=== PATIENT | male | born 2000 | race Caucasian/White ===

== ENCOUNTER 2020-09-11 13:03 | Outpatient (REF) | payer BC, MEDICAID, SELFPAY ==
--- NOTE | 2020-09-11 14:54 | MHC.AU.AHA ---
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 He arrives today to determine if there has been a change in hearing. His mother reports that he has not worn his hearing aids in about one year, as he has been doing remote schooling due to the COVID-19 pandemic. He will likely be returning to school in September, and his mother would like to make sure his hearing aids are working well before he returns. Previous Hearing Test Results: At this clinic on 12/20/2018- Right: Overall borderline-normal/mild hearing loss. Left: Moderately-severe rising to mild and sloping to moderately-severe mixed hearing loss. Medical History: Medical History: Down Syndrome Hearing Instrument History- Right Ear: Toy Electric Train Repairer: Oticon Model: Sensei Pro 13 Serial Number: [id number] Battery Size: 13 Repair Warranty: 11/25/2021 Loss and Damage Warranty: Used for right ear on 01/07/2019 Dispensed By: [facility] Date of Fittin11/14/2016 Hearing Instrument History- Left Ear: Toy Electric Train Repairer: Oticon Model: Sensei Pro 13 Serial Number: [id number] Battery Size: 13 Warranty: 11/23/2021 Loss and Damage Warranty: 11/23/2021 Dispensed By: [facility] Date of Fittin11/14/2016 Otoscopy: Right Ear: Clear canal Left Ear: Clear canal Tympanometry: Tympanometry performed due to: History of middle ear dysfunction Right Ear: Normal Middle Ear System (Type A) Left Ear: Non-compliant Middle Ear System (Type B) Hearing Evaluation: Transducer(s) Used: Insert Earphones Method: Conventional Audiometry Stimuli Used: Pure Tones Right Ear: Description of Hearing: Borderline-normal sloping to moderate mixed hearing loss Left Ear: Description of Hearing: Moderately-severe rising to mild and sloping to moderately-severe mixed hearing loss Speech Recognition Threshold (SRT): Method Used: Monitored Live Voice Stimuli Used: Pointing to Objects or Body Parts Right Ear: 20 dBHL Left Ear: 35 dBHL Comparison: Compared to the most recent evaluation: Hearing is stable. Recommendations: Audiological re-evaluation in one year. Hearing aid maintenance was performed today. Tubing was replaced. Molds are still fitting well. No programming changes made today. Hearing aids are amplifying clearly. Hearing aid maintenance in 6 months, or sooner if needed. Diagnosis: Primary Diagnosis: H90.6 Mixed Hearing Loss, Bilateral Services Performed: Pure Tone- Air & Bone (CPT 84541), Speech Audiometry Threshold (SRT/SAT) (CPT 57275), Tympanometry (CPT 65016) Signature: Provider: Lacey Bowman, CCC-A
== END 2020-09-11 13:04 | disposition home or self-care (01) ==
LOC: HO.SH 13:03
PROVIDERS: Visit Provider Pediatrics Adolescent Medicine
DX: H90.6 Mixed conductive and sensorineural hearing loss, bilateral (principal)
CPT/HCPCS: 92553; 92555; 92567

== ENCOUNTER 2021-09-13 15:21 | Outpatient (REF) | payer BC, MEDICAID, SELFPAY ==
--- NOTE | 2021-09-13 16:34 | MHC.AU.AHA ---
Adult Audiological Evaluation Date of Visit: 09/13/21 Community Program Assistant Used: Reason for Appointment: Audiological re-evaluation to determine if there has been a change in Camilo's hearing sensitivity. He has a known asymmetrical hearing loss, left ear worse than right, and uses hearing aids binaurally. His mother notes that he primarily wears the hearing aids at school, but is resistant to wearing them at home. She notes that he says the hearing aids are uncomfortable. Camilo's mother denies any changes to his medical history. Previous Hearing Test Results[place] [facility] [place]- Normal hearing in the right ear through 2000 Hz sloping to a mild to moderate sensorineural hearing loss 6385-2562 Hz. Moderately-severe rising to moderate mixed hearing loss 250-5000 Hz, rising to mild sensorineural hearing loss at 2000 and sloping to a moderate to moderately-severe sensorineural hearing loss 6205-2926 Hz. Ear History: Ear Infections in Childhood: Both ears Previous Ear Surgery: PE tubes, mother notes that one PE tube fell into left middle-ear space and had to be surgically removed. Medical History: Medical History: Down Syndrome Hearing Instrument History- Right Ear: Director Of It Operations: Oticon Model: Sensei Pro 13 Serial Number: [id number] Battery Size: 13 Repair Warranty: 11/25/2021 Loss and Damage Warranty: Used - 01/07/2019 Dispensed By: [facility] Date of Fittin11/14/2016 Hearing Instrument History- Left Ear: Director Of It Operations: Oticon Model: Sensei Pro 13 Serial Number: [id number] Battery Size: 13 Warranty: 11/23/2021 Loss and Damage Warranty: 11/23/2021 Dispensed By: [facility] Date of Fittin11/14/2016 Otoscopy: Right Ear: Unremarkable Left Ear: Unremarkable Tympanometry: Tympanometry performed due to: History of middle ear dysfunction Right Ear: Normal Middle Ear System (Type A) Left Ear: Non-compliant Middle Ear System (Type B) Hearing Evaluation: Transducer(s) Used: Insert Earphones, Bone Conduction Method: Conventional Audiometry Stimuli Used: Pure Tones Right Ear: Description of Hearing: Normal hearing from 250-2000 Hz, sloping to a mild to moderate sensorineural hearing loss from 8489-5121 Hz. Left Ear: Description of Hearing: Moderately-severe rising to moderate conductive hearing loss from 250-1000 Hz, rising to normal hearing at 2000 Hz, and then sloping to a mild to moderately-severe sensorineural hearing loss from 8463-3958 Hz. Speech Recognition Threshold (SRT): Method Used: Monitored Live Voice Stimuli Used: Spondee Words Right Ear: 15 dBHL Left Ear: 30 dBHL Word Discrimination: Method: Not performed at today's visit. Word Lists Used: Not performed at today's visit Comparison: Compared to the most recent evaluation: Hearing is stable. Recommendations: Audiological re-evaluation in one year. Trial with amplification is recommended. Medical clearance from a physician is required before fitting. Camilo's hearing aids will be [age] years old in October 2021. He is due for updated amplification and would benefit from updated technology. Discussed options with Camilo and his mother. They are interested in trying a smaller MARTA style hearing aid that may be more comfortable for Camilo and encourage more consistent hearing aid use. Camilo's health insurance plans will be contacted to determine his eligibility and coverage for new hearing aids. Once new hearing aids are approved by insurance and medical clearance is received, hearing aids will be ordered. Diagnosis: Primary Diagnosis: H90.3 Bilateral Sensorineural Hearing Loss Services Performed: Pure Tone- Air & Bone (CPT 24732) Speech Audiometry Threshold (SRT/SAT) (CPT 62907) Tympanometry (CPT 02038) Signature: Provider: Lacey Poole, [facility]
--- NOTE | 2021-09-13 16:40 | MHC.AU.HAS ---
Hearing Aid Evaluation Date of Visit: 09/22/21 Historical Information: Description of Hearing: Right ear- Normal hearing through 2000 Hz, sloping to a mild to moderate sensorineural hearing loss 6784-0251 Hz. Left ear- Moderately severe rising to moderate conductive hearing loss 250-1000 Hz, rising to normal hearing at 2000 Hz, and sloping to a mild to moderately-severe sensorineural hearing loss 2168-4445 Hz. Current personal amplification information, if applicable: 2016 Oticon Sensei Pro 13 BTEs Summary: Camilo's hearing aids will be [age] years old in October 2021. He is due for updated amplification and would benefit from updated technology. Camilo currently only wears his hearing aids at school, as he notes that they are uncomfortable. Discussed the option of trying a smaller MARTA style hearing aid couple with domes for improved comfort, as the current BTEs he has are much larger overall. He is interested in connectivity to his Android phone and his iPad. Hearing Aid Prescription: Based on the individual?s shared listening needs, communication environments, dexterity, desire for connectivity, and personal preferences, the following prescription for amplification has been made: Right ear: Registration Officer: Phonak Model: Audeo P70-13T Battery Size: 13 Color: P4- [place] Validation Leader: Size 0 M Type of Dome: Open Left ear: Registration Officer: Phonak Model: Audeo P70-13T Battery Size: 13 Color: P4- [place] Validation Leader: Size 0 M Type of Dome: Vented Plan of Care: Prior authorization to be requested. Medical Clearance to be requested from PCP/ENT. Hearing Instrument Fitting to be scheduled when materials arrive. Hearing aids will be ordered if/when approved. Primary Diagnosis: H90.3 Bilateral Sensorineural Hearing Loss Signature: Provider: Lacey Poole, [facility]
--- NOTE | 2021-09-13 16:43 | MHC.AU.AHA ---
Adult Audiological Evaluation Date of Visit: 09/22/21 Reason for Appointment: Audiological re-evaluation to determine if there has been a change in Camilo's hearing sensitivity. He has a known asymmetrical hearing loss, left ear worse than right, and uses hearing aids binaurally. His mother notes that he primarily wears the hearing aids at school, but is resistant to wearing them at home. She notes that he says the hearing aids are uncomfortable. Camilo's mother denies any changes to his medical history. [place] [facility] [place] Normal hearing in the right ear through 2000 Hz sloping to a mild to moderate sensorineural hearing loss 2968-9453 Hz. Moderately-severe rising to moderate mixed hearing loss 250-5000 Hz, rising to mild sensorineural hearing loss at 2000 and sloping to a moderate to moderately-severe sensorineural hearing loss 9277-0588 Hz. Ear History: Previous Ear Surgery: PE tubes, mother notes that the PE tube fell into the middle-ear space in the left ear and had to be surgically removed. Medical History: Medical History: Down Syndrome Hearing Instrument History- Right Ear: Floor Winder: [employer] Model: SpectraScienceeo P70-13T Serial Number: [id number] Battery Size: 13 Repair Warranty: 11/25/2021 Loss and Damage Warranty: Used - 01/07/2019 Dispensed By: [facility] Date of Fittin11/14/2016 Hearing Instrument History- Left Ear: Floor Winder: Phonak Model: SpectraScienceeo P70-13T Serial Number: [id number] Battery Size: 13 Warranty: 11/23/2021 Loss and Damage Warranty: 11/23/2021 Dispensed By: [facility] Date of Fittin11/14/2016 Otoscopy: Right Ear: Non-occluding cerumen Left Ear: Non-occluding cerumen Tympanometry: Tympanometry performed due to: History of middle ear dysfunction Right Ear: Normal Middle Ear System (Type A) Left Ear: Non-compliant Middle Ear System (Type B) Hearing Evaluation: Transducer(s) Used: Insert Earphones, Bone Conduction Method: Conventional Audiometry Stimuli Used: Pure Tones Right Ear: Description of Hearing: Normal hearing from 250-2000 Hz, sloping to a mild to moderate sensorineural hearing loss from 3405-1540 Hz. Left Ear: Description of Hearing: Moderately-severe rising to moderate conductive hearing loss from 250-1000 Hz, rising to normal hearing at 2000 Hz, and then sloping to a mild to moderately-severe sensorineural hearing loss from 2263-0600 Hz. Speech Recognition Threshold (SRT): Method Used: Monitored Live Voice Stimuli Used: Spondee Words Right Ear: 15 dBHL Left Ear: 30 dBHL Comparison: Compared to the most recent evaluation: Hearing is stable. Recommendations: Audiological re-evaluation in one year. Trial with amplification is recommended. Medical clearance from a physician is required before fitting. Camilo's hearing aids will be [age] years old in October 2021. He is due for updated amplification and would benefit from updated technology. Discussed options with Camilo and his mother. They are interested in trying a smaller MARTA style hearing aid that may be more comfortable for Camilo and encourage more consistent hearing aid use. Camilo's health insurance plans will be contacted to determine his eligibility and coverage for new hearing aids. Once new hearing aids are approved by insurance and medical clearance is received, hearing aids will be ordered. Diagnosis: Primary Diagnosis: H90.3 Bilateral Sensorineural Hearing Loss Services Performed: Pure Tone- Air & Bone (CPT 29683), Speech Audiometry Threshold (SRT/SAT) (CPT 98623), Tympanometry (CPT 36488) Signature: Provider: Lacey Poole, CCC-A
--- NOTE | 2021-09-22 14:41 | MHC.AU.MED ---
Medical Clearance for Hearing Instrumentation Date: 09/22/21 Patient Name: Camilo Oro III Date of : 2000 Referring Provider: Manish Jasso MD We have seen your patient on 09/13/21 and have determined that they are a candidate for amplification (See accompanying report). Specifically, they would benefit from: Hearing aid use in both ears There is a statute that addresses Medical Evaluation Requirements prior to fitting a patient with a hearing aid. According to [place] statute [facility] CMR:6.03(1), (a) General. Except as provided in 265 CMR 6.03(1)(b), a career technical supervisor shall not sell a hearing aid unless the prospective user has presented to the career technical supervisor a written statement signed by a licensed physician that states that the patient's hearing loss has been medically evaluated and the patient may be considered a candidate for a hearing aid. The medical evaluation must have taken place within the preceding six months. Please note: Due to the [place] Statute referenced above, we cannot accept a signature other than that of a licensed physician. CARGO ROUTER and PA signatures cannot be accepted. I am in agreement with the above recommendation. There is no medical contraindication for hearing instrumentation. Physician Signature Date Physician Name (Printed)
--- NOTE | 2021-09-22 14:42 | MHC.AU.MED ---
Medical Clearance for Hearing Instrumentation Date: 09/22/21 Patient Name: Camilo Oro III Date of : 2000 Provider: Antwon Gibson MD We have seen your patient on 09/13/21 and have determined that they are a candidate for amplification (See accompanying report). Specifically, they would benefit from: Hearing aid use in both ears There is a statute that addresses Medical Evaluation Requirements prior to fitting a patient with a hearing aid. According to [place] statute [facility] CMR:6.03(1), (a) General. Except as provided in 265 CMR 6.03(1)(b), a associate scientist shall not sell a hearing aid unless the prospective user has presented to the associate scientist a written statement signed by a licensed physician that states that the patient's hearing loss has been medically evaluated and the patient may be considered a candidate for a hearing aid. The medical evaluation must have taken place within the preceding six months. Please note: Due to the [place] Statute referenced above, we cannot accept a signature other than that of a licensed physician. WELLNESS TRAINER and PA signatures cannot be accepted. I am in agreement with the above recommendation. There is no medical contraindication for hearing instrumentation. Physician Signature Date Physician Name (Printed)
== END 2021-09-13 15:22 | disposition home or self-care (01) ==
LOC: HO.SH 15:21
PROVIDERS: Visit Provider Pediatrics Adolescent Medicine
DX: Z01.118 Encounter for examination of ears and hearing with other abnormal findings (principal); Z46.1 Encounter for fitting and adjustment of hearing aid; H90.3 Sensorineural hearing loss, bilateral
CPT/HCPCS: 92553; 92555; 92567; 92591; 92593

== ENCOUNTER 2021-11-12 14:54 | Outpatient (REF) | payer BC, MEDICAID, SELFPAY | END 2021-11-12 14:55 | disposition home or self-care (01) | LOC: HO.HAP 14:54 | PROVIDERS: Visit Provider Pediatrics Adolescent Medicine | DX: Z46.1 Encounter for fitting and adjustment of hearing aid (principal); H90.3 Sensorineural hearing loss, bilateral | CPT/HCPCS: V5275 ==

== ENCOUNTER 2022-01-28 09:28 | Outpatient (REF) | payer BC, MEDICAID, SELFPAY | END 2022-01-28 09:29 | disposition home or self-care (01) | LOC: HO.HAP 09:28 | PROVIDERS: Visit Provider Pediatrics Adolescent Medicine | DX: Z46.1 Encounter for fitting and adjustment of hearing aid (principal); H90.3 Sensorineural hearing loss, bilateral | CPT/HCPCS: V5011; V5020; V5160; V5261; V5264 ==

== ENCOUNTER 2022-03-09 12:55 | Outpatient (REF) | payer BC, MEDICAID, SELFPAY | END 2022-03-09 12:56 | disposition home or self-care (01) | LOC: HO.HAP 12:55 | PROVIDERS: Visit Provider Pediatrics Adolescent Medicine | DX: Z46.1 Encounter for fitting and adjustment of hearing aid (principal); H90.3 Sensorineural hearing loss, bilateral | CPT/HCPCS: V5264 ==

== ENCOUNTER 2022-03-31 09:27 | Outpatient (REF) | payer BC, MEDICAID, SELFPAY ==
--- NOTE | 2022-03-31 14:46 | MHC.AU.HFU ---
Hearing Instrument Follow-Up- Binaural Date of Visit: 03/31/22 Right Ear: Clerk To Justice: Phonak Model: Cloudpic Globaleo P70-13T Serial Number: [id number] Repair Warranty: 01/12/2025 Loss and Damage Warranty: 01/12/2025 Battery Size: 13 Color: P4- [place] Speech Lang Path: Size 0 M Type of Mold: Phonak C-Shell #[id number] warranty 05/29/2022 Type of Wax Guard: CeruStop Dispensed By: [facility] Date of Fittin11/14/2016 Left Ear: Clerk To Justice: Phonak Model: Cloudpic Globaleo P70-13T Serial Number: [id number] Repair Warranty: 01/12/1025 Loss and Damage Warranty: 01/12/2025 Battery Size: 13 Color: P4- [place] Speech Lang Path: Size 0 M Type of Mold: Phonak C-Shell #[id number] warranty 05/29/2022 Type of Wax Guard: CeruStop Dispensed By: [facility] Date of Fittin11/14/2016 Follow-Up Summary: Mother dropped off the right hearing aid. The hearing aid was dropped and the c-shell broke. Sending aid in for a clean and check and c-shell remake under warranty. Recommendations: When repair/remake received, schedule appointment to make sure both aids are programmed together. Diagnosis Code(s): Primary Diagnosis: H90.6 Mixed Hearing Loss, Bilateral Signature: Provider: Reinaldo Carrera, [facility]
== END 2022-03-31 09:28 | disposition home or self-care (01) ==
LOC: HO.HAP 09:27
PROVIDERS: Visit Provider Pediatrics Adolescent Medicine
DX: Z13.89 Encounter for screening for other disorder (principal)

== ENCOUNTER 2022-05-06 12:25 | Outpatient (REF) | payer BC, MEDICAID, SELFPAY | END 2022-05-06 12:26 | disposition home or self-care (01) | LOC: HO.HAP 12:25 | PROVIDERS: Visit Provider Pediatrics Adolescent Medicine | DX: Z46.1 Encounter for fitting and adjustment of hearing aid (principal); H90.6 Mixed conductive and sensorineural hearing loss, bilateral | CPT/HCPCS: V5275 ==

== ENCOUNTER 2022-07-01 12:27 | Outpatient (REF) | payer BC, MEDICAID, SELFPAY | END 2022-07-01 12:28 | disposition home or self-care (01) | LOC: HO.HAP 12:27 | PROVIDERS: Visit Provider Pediatrics Adolescent Medicine | DX: Z46.1 Encounter for fitting and adjustment of hearing aid (principal); H90.6 Mixed conductive and sensorineural hearing loss, bilateral | CPT/HCPCS: V5264 ==

== ENCOUNTER 2022-09-05 12:52 | Outpatient (RCR) | payer BC, MEDICAID, SELFPAY ==
--- NOTE | 2022-09-08 10:13 | MHC.SP.ADU ---
Referring provider: Janet Matos Reason for Referral: Cognitive - Auditory/Linguistic, Speech Articulation or Dysarthria Type of Treatment: 90391 Evaluation of Speech Sound Production Date of Plan of Treatment: 09/05/22 Onset of Symptoms/Illness: 07/01/22 Date Treatment Started: 09/05/22 Medical Diagnosis: Trisomy 21 Primary Speech Language Diagnosis: F80.0 Specific developmental disorders of speech and language Secondary Speech Language Diagnosis: F80.2 Mixed receptive-expressive language disorder History Camilo is a well-mannered and caring 22 year-old man with Down Syndrome and a chronic history of Speech/Articulation Disorder and Mixed Receptive/Expressive Language Disorder. He is referred by his Nurse Practitioner, Janet Matos, with concerns expressed by his Mother of a regression in articulation and language expression since graduating from the [employer] school system. In fact, his Mother, Chani, reports that these problems began prior to that during the Covid pandemic shut down. He is seen here for hearing loss and has [id number] hearing aids. His compliance with the hearing aids has been variable at times. He is familiar to this RAILROAD MECHANIC, and was seen 3 years ago at this clinic. 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 Medical History: Thyroid Issues Medication List: Levothyroxine Multi-vitamin Recent Hospitalizations: No Respiratory Needs: Room Air Social History: Current Living Situation: Camlio lives with his parents in [place], [place] Assistive Devices in use: Glasses/Contacts Hearing Aids Past Speech Language Therapy: Camilo has a life-long history of Speech Therapy through school, and this clinic. Other Therapies Seen in Current Calendar Year: None Other: He is engaged with [employer] that provides him many enriching opportunities. Swallowing History: Dysphagia Specific: Did not test. Reported Speech, Language, Cognition difficulties: Understanding Attention Reading Memory Cognition Speaking Problem Solving Writing Assessment Speech Production: Dysarthric Paucity of speech Clinical Impression: Impaired Observations: Camilo participated in the [place]-Dxail subtest of the Virgen-Fristoe Test of Articulation, 3rd Edition (GFTA-3). Please note that he is over the normative age range which only goes to 21. With that in mind he committed 64 errors resulting in a Standard Score of 40 in the <0.1 percentile rank. Also note these score are not sensitive enough to capture severity level. Errors included medial and final consonant deletion, stopping, backing, /s/-cluster deletion, and nasalization of liquid-/l/. He also exhibited an atypical productions of fricatives, wherein he would inhale rather exhale on /s/ and /sh/. Tests of Speech & Lang Adults: Clinical Impression: Could Not Test Observations: Could not test for time limitations, however further diagnostic treatment is recommended to assess these areas. Tests of Cognition: Clinical Impression: Did Not Test Impressions and Recommendations Summary: Impact on Daily Function/Activity Limitations: Daily Activities: Severe Interpersonal Interactions: Severe Education: Severe Employment: Severe Community: Severe Prognosis for Improvement: Guarded Comment: As above Recommendation for Speech Therapy: Further Testing Needed Frequency/Duration: 1 x week x 12 weeks Date Range for Service Requested: 09/20/22-12/13/22 Time to Reassess: PRN Blasting Machine Operator Goals: LTG1: Camilo will increase his intelligibility given cues from caregivers. LTG2: Camilo will increase the frequency and length of his expressive language with cues from caregivers. Short Term Goals: Goal # : STG1: Camilo with complete an assessment of adult language. Goal Status: New Goal Goal# : STG2: Camilo will correct articulation errors given up to x2 cues from caregivers in >80% of opportunities. Goal Status: New Goal Goal # : STG3: Camilo will expand phrase length to x2 words given cues from caregivers in >80% of opportunities. Goal Status: New Goal Patient Education: Completed: Yes Patient/Caregiver Education: Described Results of Evaluation Family/Caregivers expressed understanding of results Family/Caregivers expressed agreement with goals and treatment plan Comments/Barriers to Learning: Bacon Slicer Clinican/Clinical Fellow: No Supervisory Statement: Yes Speech Language Pathologist: Yadiel Barrett M.A., [facility]-RAILROAD MECHANIC
== END 2022-09-08 11:41 | disposition still patient (30) ==
LOC: HO.SH 12:52
PROVIDERS: Visit Provider Nurse Practitioner Family
DX: F80.0 Phonological disorder (principal); F80.2 Mixed receptive-expressive language disorder
CPT/HCPCS: 92522

== ENCOUNTER 2022-10-04 15:33 | Outpatient (REF) | payer SELFPAY | END 2022-10-04 15:34 | disposition home or self-care (01) | LOC: HO.HAP 15:33 | PROVIDERS: Visit Provider Pediatrics Adolescent Medicine | DX: Z46.1 Encounter for fitting and adjustment of hearing aid (principal); H90.3 Sensorineural hearing loss, bilateral | CPT/HCPCS: V5267 ==

== ENCOUNTER 2022-12-06 15:30 | Outpatient (RCR) | payer BC, MEDICAID, SELFPAY | END 2022-12-08 11:04 | disposition home or self-care (01) | LOC: HO.SH 15:30 | PROVIDERS: Visit Provider Nurse Practitioner Family | DX: H91.90 Unspecified hearing loss, unspecified ear (principal) | CPT/HCPCS: 92507 ==

== ENCOUNTER 2023-09-01 12:22 | Outpatient (REF) | payer BC, MEDICAID, SELFPAY ==
--- NOTE | 2023-09-04 09:53 | MHC.AU.MED ---
Medical Clearance for Hearing Instrumentation Date: 09/04/23 Patient Name: Camilo Oro III Date of : 2000 Primary Care Provider: Janet Matos CNP Referring Provider: Janet Matos CNP We have seen your patient on 09/04/23 and have determined that they are a candidate for amplification (See accompanying report). Specifically, they would benefit from: Hearing aid use in both ears There is a statute that addresses Medical Evaluation Requirements prior to fitting a patient with a hearing aid. According to [place] statute 265 CMR:6.03(1), (a) General. Except as provided in 265 CMR 6.03(1)(b), a protection agent shall not sell a hearing aid unless the prospective user has presented to the protection agent a written statement signed by a licensed physician that states that the patient's hearing loss has been medically evaluated and the patient may be considered a candidate for a hearing aid. The medical evaluation must have taken place within the preceding six months. Please note: Due to the [place] Statute referenced above, we cannot accept a signature other than that of a licensed physician. PROPERTY UTILIZATION MANAGER and PA signatures cannot be accepted. I am in agreement with the above recommendation. There is no medical contraindication for hearing instrumentation. Physician Signature Date Physician Name (Printed)
--- NOTE | 2023-09-04 10:13 | MHC.AU.HA3 ---
Hearing Instrument Follow-Up- Binaural Date of Visit: 09/01/23 Bulk Gas Specialist Used: Right Ear: Antonio, Model, Color, Serial Number: Joy Nunez P 70-13T [place] Serial #[id number] Manager Of Case Repair Warranty: 01/12/2025 Manager Of Case Loss and Damage Warranty: 01/12/2025 [facility] Service Plan: 01/28/2023 Battery Size: 13 Sewer Pipe Sorter/Slim Tube: Size 0 M [place]/Dome/CShell/SlimTip:Phonak C-Shell #[id number] warranty 05/29/2022 Type of Wax Guard: CeruStop Dispensed By: [facility] Date of Fittin01/28/2022 Left Ear: Antonio, Model, Color, Serial Number: Joy Nunez P70-13T [place] Serial #[id number] Manager Of Case Repair Warranty: 01/12/1025 Manager Of Case Loss and Damage Warranty: 01/12/2025 [facility] Service Plan: 01/28/2023 Battery Size: 13 Sewer Pipe Sorter/Slim Tube: Size 0 M [place]old/Dome/CShell/SlimTip: Phonak C-Shell #[id number] warranty 05/29/2022 Type of Wax Guard: CeruStop Dispensed By: [facility] Date of Fittin01/28/2022 Follow-Up Summary: Peter visited for updated evaluation. He is reportedly wearing his old BTEs as he has lost his RICs again, though the right BTE has not seemed to be working. One is under L&D, the other is not. Peter reportedly has difficulty using and keeping track of the RICs and they do not want to bother replacing them. I will submit for prior authorization to get him a new pair of Oticon Real BTEs in [facility]. In the meantime, the settings in his left BTE were adjusted to reflect the change in his hearing, and a loaner BTE was programmed for the right ear. Medical clearance submitted to PCP. A pair of swim molds in red also ordered today. Recommendations: Recommendations: Patient will be contacted when materials have arrived. Diagnosis Code(s): Primary Diagnosis: H90.3 Bilateral Sensorineural Hearing Loss Signature: Provider: Lacey Murray, [facility]
== END 2023-09-01 12:23 | disposition home or self-care (01) ==
LOC: HO.SH 12:22
PROVIDERS: PCP Nurse Practitioner Family; Visit Provider Nurse Practitioner Family
DX: Z01.118 Encounter for examination of ears and hearing with other abnormal findings (principal); Z46.1 Encounter for fitting and adjustment of hearing aid; H90.3 Sensorineural hearing loss, bilateral
CPT/HCPCS: 92553; 92555; 92567; 92591; 92593; 99499

== ENCOUNTER 2023-09-22 13:55 | Outpatient (REF) | payer BC, MEDICAID, SELFPAY | END 2023-09-22 13:56 | disposition home or self-care (01) | LOC: HO.HAP 13:55 | PROVIDERS: Visit Provider Family Medicine | DX: Z46.1 Encounter for fitting and adjustment of hearing aid (principal); H90.3 Sensorineural hearing loss, bilateral | CPT/HCPCS: V5011; V5020; V5160; V5261; V5264 ==

== ENCOUNTER 2023-09-22 14:38 | Outpatient (REF) | payer SELFPAY | END 2023-09-22 14:39 | disposition home or self-care (01) | LOC: HO.HAP 14:38 | PROVIDERS: Visit Provider Nurse Practitioner Family | DX: Z46.1 Encounter for fitting and adjustment of hearing aid (principal) | CPT/HCPCS: V5264 ==

== ENCOUNTER 2023-10-11 14:24 | Outpatient (REF) | payer BC, MEDICAID, SELFPAY | END 2023-10-11 14:25 | disposition home or self-care (01) | LOC: HO.HAP 14:24 | PROVIDERS: Visit Provider Nurse Practitioner Family | DX: Z13.89 Encounter for screening for other disorder (principal) ==